=== PATIENT | male | born 1950 | race Caucasian/White ===

== ENCOUNTER 2019-08-19 18:41 | Emergency (ER) | payer SELFPAY ==
[~2019-08-19] VITALS: Ht 177.8 cm; Wt 88.5 kg
[2019-08-19 18:48] VITALS: BP 194/83
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
[2019-08-19 19:40] LABS: AMPHETAMINE SCREEN, URINE Negative (Negative); BARBITURATE SCREEN, URINE Negative (Negative); BENZODIAZEPINE SCREEN, URINE Negative (Negative); CANNABINOID SCREEN, URINE Negative (Negative); COCAINE SCREEN, URINE Negative (Negative); METHADONE SCREEN, URINE Negative (Negative); OPIATE SCREEN, URINE Negative (Negative)
--- NOTE | 2019-08-19 20:18 | NUR ---
Patient/Caregiver given discharge instructions and they have confirmed that they understand the instructions. Patient ambulatory with steady gait.
== END 2019-08-19 20:19 | disposition home or self-care (01) ==
LOC: ED 20:13
DX: Z04.1 Encounter for examination and observation following transport accident (principal); V79.0 Driver of bus injured in collision with other and unspecified motor vehicles in nontraffic accident; Y93.89 Activity, other specified; Y92.89 Other specified places as the place of occurrence of the external cause; Y99.8 Other external cause status
CPT/HCPCS: 36415; 80307; 99283